=== PATIENT | male | born 1975 | race Caucasian/White ===

== ENCOUNTER 2017-09-03 12:34 | Emergency (ER) | payer SELFPAY ==
[2017-09-03 13:06] VITALS: BP 174/83
--- NOTE | 2017-09-03 13:51 | UC ---
Complaint Male HPI - HPI Summary HPI Summary: left groin pain x 3 hrs pain is sever, radiating to his pain , + dysuria , difficulty urinating + chills, no fever, + nausea his symptoms improved significantly after urination , thinks he passed a kidney stone - History of Current Complaint Chief Complaint: UCGeneralIllness Stated Complaint: BACK/GROIN AREA PAIN Time Seen by Provider: 09/03/17 13:00 Hx Obtained From: Patient Onset/Duration: Sudden Onset, Lasting Hours - 3, Resolved Timing: Constant Severity Initially: Severe Severity Currently: Mild Pain Intensity: 8 Pain Scale Used: 0-10 Numeric Location: Groin - left Character: Sharp, Burning Aggravating Factor(s): Voiding Alleviating Factor(s): Nothing Associated Signs And Symptoms: Positive: Back Pain, Dysuria, Nausea. Negative: Diaphoresis, Fever, Hematuria, Constipation, Blood in Stool, Rectal Pain, Appetite, Vomiting(# Of Episodes =), Penile Swelling, Penile Discharge - Allergies/Home Medications Allergies/Adverse Reactions: Allergies Allergy/AdvReac Type Severity Reaction Status Date / Time Penicillins Allergy Rash Verified 09/03/17 12:55 Home Medications: Home Medications Ibuprofen TAB* [Advil TAB*] 800 mg PO Q6HR PRN 09/03/17 [History Confirmed 09/03] PMH/Surg Hx/FS Hx/Imm Hx Previously Healthy: Yes - Surgical History Surgical History: Yes Surgery Procedure, Year, and Place: Wrist surgery, foot surgery. T&A. tubes in ears. amputations of L toe and finger. - Family History Known Family History: Positive: Cardiac Disease, Hypertension - Social History Alcohol Use: Rare Substance Use Type: None Smoking Status (MU): Heavy Every Day Tobacco Smoker Type: Cigarettes Amount Used/How Often: 1 1/2ppd Review of Systems Constitutional: Negative Skin: Negative Eyes: Negative ENT: Negative Respiratory: Negative Cardiovascular: Negative Gastrointestinal: Negative Genitourinary: Dysuria Motor: Negative Neurovascular: Negative Is Patient Immunocompromised?: No All Other Systems Reviewed And Are Negative: Yes Physical Exam Triage Information Reviewed: Yes Appearance: Well-Appearing, No Pain Distress, Well-Nourished Vital Signs: Initial Vital Signs Temp 98.3 F 09/03/17 13:00 Pulse 98 09/03/17 13:00 Resp 18 09/03/17 13:00 BP 174/83 09/03/17 13:00 Pulse Ox 99 09/03/17 13:00 Vital Signs Reviewed: Yes Eyes: Positive: Conjunctiva Clear ENT: Positive: Normal ENT inspection, Hearing grossly normal, Pharynx normal Neck: Positive: Supple, Nontender, No Lymphadenopathy Respiratory: Positive: Chest non-tender, Lungs clear, Normal breath sounds Cardiovascular: Positive: RRR, No Murmur, Pulses Normal Abdominal Exam: Normal Abdomen Description: Positive: Nontender, Soft. Negative: CVA Tenderness (R), CVA Tenderness (L), Distended, Guarding Bowel Sounds: Positive: Present Neurological Exam: Normal Complaint Male Course/Dx - Differential Dx/Diagnosis Provider Diagnoses: renal colic Discharge - Discharge Plan Condition: Stable Disposition: HOME Prescriptions: Ciprofloxacin TAB* [Cipro 500 MG TAB*] 500 mg PO BID #20 tab Tamsulosin HCl [Flomax] 0.4 mg PO DAILY WITH MEAL #10 cap.er.24h Patient Education Materials: Kidney Stones (ED) Referrals: No Primary Care Phys,NOPCP [Primary Care Provider] - 5 Days
== END 2017-09-03 13:35 | disposition home or self-care (01) ==
LOC: UCCORT 12:34
DX: N23 Unspecified renal colic (principal); F17.210 Nicotine dependence, cigarettes, uncomplicated
CPT/HCPCS: 81003; 87086; 99212; G0463

== ENCOUNTER 2018-12-04 20:38 | Emergency (ER) | payer BC ==
[2018-12-04 20:45] VITALS: BP 139/78
--- OUTSIDE RECORDS SUMMARY | 2018-12-04 20:46 | XMS REPORT | Continuity of Care Document ---
:1975 External Reference #:[id number] Author Name Dara Ariza Care Team Providers Name Role Phone Dorian Hernandez D.O. 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 Tobacco Use Start: Unknown current cigarette smoker ETOH Use Rarely consumes alcohol Tobacco Use Start: Unknown Patient is a current smoker, smokes every day Recreational Drug Use Formerly used Cocaine sporadically Recreational Drug Use Formerly used Marijuana sporadically Tobacco Use Start: Unknown Light tobacco smoker (10 or fewer cigarettes/day) Tobacco Use Start: Unknown Chewing Tobacco on average, one can a day Smoking Status Reviewed: 11/11/18 Chewing Tobacco on average, one can a day Exercise Type/Frequency Does not exercise Allergies, Adverse Reactions, Alerts Active Allergies Reaction Severity Comments Date Penicillin hives 11/11/2018 Tamiflu hives 11/11/2018 Medications Active Medications SIG Qnty Indications Ordering Provider Date Methimazole 20mg daily for 1 60tabs E05.00 Hardy Lozoya MD 11/11/2018 10mg week, then 10mg Tablets daily after that Atenolol 25-50mg by mouth 60tabs E05.00 Hardy Lozoya MD 11/11/2018 25mg Tablets every day for relief of thyroid symptoms History Medications No Active Medications Unknown 11/11/2018 - 11/11/2018 Immunizations Description No Information Available Vital Signs Date Vital Result Comment 11/11/2018 9:04am Height 72 inches 6'0" Weight 166.00 lb Heart Rate 105 /min BP Systolic Sitting 149 mmHg BP Diastolic Sitting 76 mmHg Respiratory Rate 18 /min Body Temperature 96.6 F tympanic O2 % BldC Oximetry 97 % on Ra BMI (Body Mass Index) 22.5 kg/m2 Results Description No Information Available Procedures Description No Information Available Encounters Description No Information Available Plan of Treatment Future Appointment(s):12/29/2018 8:00 am - Hardy Lozoya MD at [facility]11/11/2018 - Hardy Lozoya MDE05.00 Thyrotoxicosis with diffuse goiter without thyrotoxic crisisNew Medication:Methimazole 10 mg - 20mg daily for 1 week, then 10mg daily after thatAtenolol 25 mg - 25-50mg by mouth every day for relief of thyroid symptomsNew Xrays:US Thyroid, Ordered: Follow up:6-8 weeks, printed handoutInstructions:1. Blood tests today. 2. Start methimazole 20mg daily for 1 week, then 10mg daily. 3. Start [id number] daily for palpitations and tremors. 4. Return in 3-4 weeks for repeat blood tests. 5. Return in6-8 weeks for a follow-up visit.
--- NOTE | 2018-12-04 20:55 | UC ---
Throat Pain/Nasal Joe HPI - HPI Summary HPI Summary: C/O sore throat since yesterday. More difficulty swallowing today with fevers, chills. No sinus headache. - History of Current Complaint Chief Complaint: UCGeneralIllness Stated Complaint: THROAT SWELLING, FEVER, LIGHTHEADED Time Seen by Provider: 12/04/18 20:46 Hx Obtained From: Patient Onset/Duration: Sudden Onset, Lasting Days - 2, Worse Since - today Severity: Moderate Pain Intensity: 6 Cough: Nonproductive Associated Signs & Symptoms: Positive: Dysphagia, Fever. Negative: Drooling, Sinus Discomfort Related History: Smoking - Epiglottits Risk Factors Epiglottis Risk Factors: Sudden Onset - Allergies/Home Medications Allergies/Adverse Reactions: Allergies Allergy/AdvReac Type Severity Reaction Status Date / Time oseltamivir [From Tamiflu] Allergy Rash Verified 12/04/18 20:47 Penicillins Allergy Rash Verified 12/04/18 20:46 Home Medications: Home Medications Atenolol TAB* [Tenormin TAB* 25 MG] 25 mg PO DAILY 12/04/18 [History Confirmed 12/04/18] Methimazole TAB* [Tapazole TAB*] 10 mg PO DAILY 12/04/18 [History Confirmed 07/24] PMH/Surg Hx/FS Hx/Imm Hx Endocrine History: Thyroid Disease - Graves disease - Surgical History Surgical History: Yes Surgery Procedure, Year, and Place: Wrist surgery, foot surgery. T&A. tubes in ears. amputations of L toe and finger. - Family History Known Family History: Positive: Cardiac Disease, Hypertension - Social History Occupation: Employed Full-time Lives: Alone - with Girlfriend Alcohol Use: Occasionally Substance Use Type: None Smoking Status (MU): Light Every Day Tobacco Smoker Type: Cigarettes Amount Used/How Often: 5-6 cig/day Review of Systems All Other Systems Reviewed And Are Negative: Yes Constitutional: Positive: Fever, Fatigue ENT: Positive: Sore Throat Musculoskeletal: Positive: Myalgia Is Patient Immunocompromised?: No Physical Exam Triage Information Reviewed: Yes Appearance: Well-Nourished, Ill-Appearing, Pain Distress Vital Signs: Initial Vital Signs Temp 99.4 F 12/04/18 20:42 Pulse 96 12/04/18 20:42 Resp 16 12/04/18 20:42 BP 139/78 12/04/18 20:42 Pulse Ox 98 12/04/18 20:42 Vital Signs Reviewed: Yes Eyes: Positive: Conjunctiva Clear ENT: Positive: Pharyngeal erythema, TMs normal Neck: Positive: Supple, No Lymphadenopathy Respiratory Exam: Normal Cardiovascular Exam: Normal Musculoskeletal Exam: Normal Neurological Exam: Normal Psychological Exam: Normal Skin Exam: Normal Diagnostics - Radiology No standard instances Radiology Interpretation Completed By: ED Physician Summary of Radiographic Findings: No obvious epiglottitis Throat Pain/Nasal Course/Dx - Differential Dx/Diagnosis Differential Diagnosis/HQI/PQRI: Epiglottitis, Peritonsillar Abscess, Pharyngitis, Tonsillitis Provider Diagnosis: Pharyngitis Discharge - Sign-Out/Discharge Documenting (check all that apply): Patient Departure All imaging exams completed and their final reports reviewed: No - Discharge Plan Condition: Stable Disposition: HOME Prescriptions: predniSONE TAB* [Deltasone 20 MG TAB*] 60 mg PO DAILY #18 tab Patient Education Materials: Pharyngitis (ED), Prednisone (By mouth) Referrals: Dorian Hernandez DO [Primary Care Provider] - Additional Instructions: IF SWALLOWING GETS WORSE CALL 911. - Billing Disposition and Condition Condition: STABLE Disposition: Home
[2018-12-04] MEDS ORDERED: methylPREDNISolone 125 MG* 2 ML VIAL IM ONE (21:10)
--- NOTE | 2018-12-05 10:12 | UC ---
- EKG/XRAY/CT Xray Comments: wet read correct Course/Dx - Diagnoses Provider Diagnoses: Pharyngitis Discharge - Sign-Out/Discharge Documenting (check all that apply): Post-Discharge Follow Up All imaging exams completed and their final reports reviewed: Yes - Discharge Plan Condition: Stable Disposition: HOME Prescriptions: predniSONE TAB* [Deltasone 20 MG TAB*] 60 mg PO DAILY #18 tab Patient Education Materials: Prednisone (By mouth), Pharyngitis (ED) Referrals: Dorian Hernandez DO [Primary Care Provider] - Additional Instructions: IF SWALLOWING GETS WORSE CALL 911. - Billing Disposition and Condition Condition: STABLE Disposition: Home
== END 2018-12-04 21:32 | disposition home or self-care (01) ==
LOC: UCCORT 20:38
DX: J02.9 Acute pharyngitis, unspecified (principal); Z88.0 Allergy status to penicillin; F17.210 Nicotine dependence, cigarettes, uncomplicated
CPT/HCPCS: 70360; 87651; 96372; 99212; G0463; J2930